=== PATIENT | male | born 1980 | race African-American/Black ===

== ENCOUNTER 2021-09-03 17:27 | Emergency (ER) | payer OTHER ==
[~2021-09-03] VITALS: Ht 180.3 cm; Wt 99.8 kg
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
[2021-09-03 17:49] LABS: ABSOLUTE NEUTROPHILS 1.5 thou/uL (1.4-8.2); BASOPHILS 1.5 % (0.0-2.0); EOSINOPHILS 1.7 % (0.0-3.0); HEMATOCRIT 45.9 % (42.0-52.0); LYMPHOCYTES 42.8 % (24.0-44.0); MCH 28.5 pg (26.0-34.0); MCHC 32.7 g/dL (28.0-37.0); MCV 87.2 fL (80.0-100.0); MONOCYTES 13.7 % (1.0-8.0); PLATELET COUNT 263 thou/uL (150-400); POLYS 40.3 % (36.0-66.0); RBC 5.26 mil/uL (4.50-6.00); RDW 13.9 % (10.5-14.5); WBC 3.8 thou/uL (4.0-11.0)
[2021-09-03 19:17] LABS: URINE BILIRUBIN NEGATIVE (Negative); URINE BLOOD NEGATIVE (Negative); URINE CLARITY CLEAR; URINE COLOR YELLOW; URINE GLUCOSE-RANDOM* NEGATIVE (Negative); URINE KETONES NEGATIVE (Negative); URINE LEUKOCYTES-REFLEX NEGATIVE (Negative); URINE NITRITE-REFLEX NEGATIVE (Negative); URINE PROTEIN (DIPSTICK) NEGATIVE (Negative); URINE SPECIFIC GRAVITY >= 1.030 (1.005-1.035); URINE UROBILINOGEN 0.2 E.U./dl (0.2-1.0)
[2021-09-03 19:27] LABS: ANION GAP 8 mmol/L (7-16); BUN 14 mg/dL (7-18); CALCIUM 8.8 mg/dL (8.5-10.1); CHLORIDE 108 mmol/L (98-107); CO2 28 mmol/L (21-32); CREATININE 1.4 mg/dL (0.7-1.3); GLUCOSE 92 mg/dL (74-106); POTASSIUM 3.9 mmol/L (3.5-5.1); SODIUM 144 mmol/L (136-145)
[2021-09-03 19:30] LABS: AMP/METHAMP POSITIVE (Negative); BARBITURATES Negative (Negative); BENZODIAZEPINES Negative (Negative); COCAINE POSITIVE (Negative); METHADONE Negative (Negative); OPIATES Negative (Negative); PCP POSITIVE (Negative)
[2021-09-03 19:37] LABS: ALBUMIN 3.5 g/dL (3.4-5.0); DIRECT BILIRUBIN 0.1 mg/dL (<0.1-0.2); MAGNESIUM 2.1 mg/dL (1.8-2.4); PHOSPHORUS 3.3 mg/dL (2.6-4.7); SALICYLATE 3.1 mg/dL (2.8-20.0); SGOT 31 U/L (15-37); SGPT 40 U/L (16-63); TOTAL BILIRUBIN 0.3 mg/dL (0.2-1.0); TOTAL PROTEIN 6.7 g/dL (6.4-8.2)
[2021-09-03 20:22] VITALS: BP 162/82
--- NOTE | 2021-09-04 07:17 | EKG ---
[place] [address] [facility] [place] [address] ELECTROCARDIOGRAM REPORT Name: JENNIFER TESFAYE Room #: DEP JUSTA Moore#: [id number] Admission: 09/03/21 Attend Phys: Discharge: 09/03/21 Date of : 82 Report #: [id number] [facility] ED Test Date: 2021-09-03 Test Time: 18:17:49 Pat Name: JENNIFER TESFAYE Department: Room: Gender: M Welding Operator: : 1980 Requested By: Baljit Mckeon Order Number: [id number] MD: Mikael Montez Measurements Intervals Gordon Rate: 64 P: -16 NM: 139 QRS: -12 QRSD: 88 T: 12 QT: 424 QTc: 438 Interpretive Statements Sinus rhythm ST elev, probable normal early repol pattern No previous ECG available for comparison Electronically Signed On 09-04-2021 7:17:14 SECTION CUTTER by Mikael Montez [email or web address] <ELECTRONICALLY SIGNED> By: Mikael Montez MD, [facility] 09/04/21 0717 1817 16 Mikael Montez MD, FACC /EPI
== END 2021-09-03 20:22 | disposition home or self-care (01) ==
LOC: ER 17:27
PROVIDERS: Emergency Medicine
DX: F19.20 Other psychoactive substance dependence, uncomplicated (principal); R41.82 Altered mental status, unspecified; F14.10 Cocaine abuse, uncomplicated; F12.10 Cannabis abuse, uncomplicated; F16.10 Hallucinogen abuse, uncomplicated